=== PATIENT | female | born 1980 | race Caucasian/White ===

== ENCOUNTER → 2022-09-20 10:15 | Outpatient (BNVA) | payer BC, SELFPAY | PROVIDERS: Family Provider Nurse Practitioner Family; PCP Nurse Practitioner Family; Visit Provider Obstetrics & Gynecology | DX: Z01.419 Encounter for gynecological examination (general) (routine) without abnormal findings (principal); Z30.9 Encounter for contraceptive management, unspecified | CPT/HCPCS: 87624 ==

== ENCOUNTER 2022-09-25 08:39 | Outpatient (CLI) | payer BC, SELFPAY ==
--- NOTE | 2022-09-25 09:02 | MM_ITS ---
WS: [id number] DIAGNOSTIC BILATERAL DIGITAL BREAST TOMOSYNTHESIS MAMMOGRAPHY WITH CAD RIGHT breast ultrasound, limited. HISTORY: RT BREAST LUMP COMPARISON: None available. TECHNIQUE: Bilateral craniocaudad, mediolateral oblique, and mediolateral views are submitted with to mosynthesis and SM. Spot compression RIGHT CC. Computer aided detection utilized. Breast composition: The breasts are extremely dense, which lowers the sensitivity of mammography. Mejia y dense bilateral fibroglandular tissue. Granular marker is placed in the upper outer quadrant of the RIGHT breast indicating the palpable abnormality. There is no underlying mass or distortion identifi ed. There is very dense fibroglandular tissue present. Ultrasound to follow. RIGHT breast ultrasound, limited. Ultrasound is directed to the upper-outer quadrant of the RIGHT breast in the palpable region. There is a small cyst measuring 5 x 2 x 4 mm. Very dense fibroglandular tissue. There is no solid mass or s hadowing. MM/[place] [id number] IMPRESSION: BI-RADS: 2-Benign FOLLOW UP: 1 Year Follow-up LACK OF RADIOGRAPHIC EVIDENCE OF MALIGNANCY SHOULD NOT DELAY BIOPSY IF A CLINIC ALLY SUSPICIOUS MASS IS PRESENT.
== END 2022-09-25 08:40 | disposition home or self-care (01) ==
PROVIDERS: PCP Nurse Practitioner Family; Visit Provider Nurse Practitioner Family
DX: R92.2 Inconclusive mammogram (principal)
CPT/HCPCS: 76642; 77062; G0279